=== PATIENT | female | born 1960 | race African-American/Black ===

== ENCOUNTER → 2017-05-14 | Outpatient (CLI) | payer BC ==
--- NOTE | 2017-05-14 14:05 | RAD ---
Indication: Right leg swelling. Grayscale, color-flow and duplex Doppler evaluation of the right lower extremity deep venous system was performed. FINDINGS: There is no evidence of a right lower extremity DVT. The right lower extremity venous system demonstrates normal compressibility with normal response to augmentation and Valsalva. No soft tissue fluid collections are identified. IMPRESSION: No evidence of right lower extremity DVT.
== END | disposition home or self-care (01) ==
LOC: US 13:36
PROVIDERS: ATTEND Orthopaedic Surgery Sports Medicine
DX: M79.89 Other specified soft tissue disorders (principal); R60.0 Localized edema
CPT/HCPCS: 93971

== ENCOUNTER → 2017-06-12 | Outpatient (CLI) | payer BC ==
[~2017-06-12] MED LIST: AMLO10TA2 PO; HYDR12.53 PO; METO100T2 PO; POTA10TA12 PO
--- NOTE | 2017-06-12 13:20 | EKG ---
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
[2017-06-12 13:25] LABS: BASO # 0.1 x10^3/uL (0.0-0.2); BASO % 1 % (0-3); EOS % 1 % (0-3); HEMATOCRIT 40.1 % (36.0-47.0); HEMOGLOBIN 13.4 g/dL (12.0-15.5); LYMPH # 3.4 x10^3/uL (1.0-4.8); LYMPH % 39 % (24-48); MEAN CORPUSCULAR HEMOGLOBIN 28 pg (25-35); MEAN CORPUSCULAR HGB CONC 34 g/dL (31-37); MEAN CORPUSCULAR VOLUME 84 fL (79-100); MONO % 8 % (0-9); NEUT % 52 % (31-73); PLATELET COUNT 329 x10^3/uL (140-400); RED BLOOD COUNT 4.76 x10^6/uL (3.50-5.40); RED CELL DISTRIBUTION WIDTH 13.7 % (11.5-14.5); WHITE BLOOD COUNT 8.8 x10^3/uL (4.0-11.0)
[2017-06-12 13:32] LABS: CREATININE 0.7 mg/dL (0.6-1.0); GFR 104.7; POTASSIUM 3.6 mmol/L (3.5-5.1)
== END | disposition home or self-care (01) ==
LOC: SURGPAT 12:17
PROVIDERS: ATTEND Obstetrics & Gynecology
DX: Z01.812 Encounter for preprocedural laboratory examination (principal)
CPT/HCPCS: 36415; 80048; 85027; 93005

== ENCOUNTER → 2017-06-21 | Outpatient (CLI) | payer BC ==
--- NOTE | 2017-06-21 10:43 | KCIC ---
MRI right foot without contrast dated 06/21/2017. No comparison available. CLINICAL INDICATION: Right foot pain and swelling. Pain for 2 months. TECHNIQUE: T1 and T2-weighted imaging performed in 3 planes to include the midfoot region. No contrast administered. FINDINGS: There is focal bone marrow edema involving the posterior medial aspect of the cuboid bone. Subtle hypointense lines posterior medially extending to the articular surface. No displaced component. Mild increased signal within the shaft of the third metatarsal and neck of the fourth metatarsal with surrounding soft tissue edema and periosteal edema. There is also mild increased signal within the marrow of the lateral cuneiform bone and base of second metatarsal. No additional fracture line. Minimal increased signal within the talar neck and head medially. There is diffuse edema throughout the subcutaneous tissues of the dorsal foot. There is also diffuse edema at the ankle. No ankle joint effusion. The talar dome is intact. Mild degenerative change of the tibiotalar joint and subtalar joints and joints of midfoot. Lisfranc ligament is grossly intact. Flexor and extensor tendons are grossly intact. The ankle ligaments are not well evaluated but appear grossly intact. IMPRESSION: 1. Stress fractures of the cuboid bone and fourth metacarpal neck, without significant displacement. 2. Mild edema within the second and third metatarsal and lateral cuneiform bone, reactive edema versus stress reaction. 3. Since of subcutaneous edema as described above. This is nonspecific and could be reactive. Neuropathic edema, cellulitis or vasogenic edema is also possible. Recommend clinical correlation. 4. Mild degenerative changes as described above. Electronically signed by: Florencio Morel MD (06/21/2017 10:40 AM) [facility]
== END | disposition home or self-care (01) ==
LOC: KCIC MRI 08:04
PROVIDERS: ATTEND Nurse Practitioner Gerontology
DX: M84.374A Stress fracture, right foot, initial encounter for fracture (principal); X58.XXXA Exposure to other specified factors, initial encounter; Y93.89 Activity, other specified; Y92.89 Other specified places as the place of occurrence of the external cause; Y99.8 Other external cause status; R60.0 Localized edema
CPT/HCPCS: 73718

== ENCOUNTER → 2017-06-21 | Outpatient (CLI) | payer BC ==
--- NOTE | 2017-06-21 12:22 | RAD ---
DATE: 06/21/2017 EXAM: MAMMO KIRSTA SCREENING BILATERAL HISTORY: Routine screening COMPARISON: 07/16/2016 The breast parenchyma is primarily fatty replaced. Breast parenchyma level density A. FINDINGS: 2-D and 3-D tomosynthesis imaging was performed in CC and MLO projections. There is a small cluster of microcalcifications in the upper outer right breast. These has been little if any increase since 10/08/2014. These are most likely benign. No new or enlarging breast densities are seen. Benign-appearing lymph node type densities are present in the axillary regions. IMPRESSION: There is no mammographic evidence of malignancy in either breast. BI-RADS CATEGORY: 2 BENIGN FINDING(S) RECOMMENDED FOLLOW-UP: 12M 12 MONTH FOLLOW-UP PQRS compliance statement: Patient information was entered into a reminder system with a target due date for the next mammogram. Mammography is a sensitive method for finding small breast cancers, but it does not detect them all and is not a substitute for careful clinical examination. A negative mammogram does not negate a clinically suspicious finding and should not result in delay in biopsying a clinically suspicious abnormality. "Our facility is accredited by the [employer] Mammography Program."
== END | disposition home or self-care (01) ==
LOC: KCIC MAMMO 08:03
PROVIDERS: ATTEND Family Medicine
DX: Z12.31 Encounter for screening mammogram for malignant neoplasm of breast (principal)
CPT/HCPCS: 77063; G0202; 77067

== ENCOUNTER 2017-06-27 09:07 | Observation (INO) | payer BC ==
[2017-06-27] VITALS (8 sets, daily range): BP systolic 102–116; BP diastolic 58–68
[~2017-06-27] VITALS: Ht 165.1 cm; Wt 75.3 kg
[~2017-06-27 09:07] MED LIST changes: +BUPIVAC MPF-EPI 0.5%-1:200000 30 ML VIAL. ONE; +ESTROGENS, CONJ VAGINAL CREAM 30GM TUBE. ONE; +HYDROmorphone 2 MG/ML VIAL IV PRN; +IV RINGERS,LACTATED 1000ML 1,000 ML IV SCH; +LIDOCAINE 1% 1 ML SYRINGE. ID PRN; +MORPHINE SULFATE 2 MG/ML DISP.SYRIN. IV PRN; +ONDANSETRON PF 4 MG/2 ML VIAL. IV PRN; +PROCHLORPERAZINE 10 MG/2 ML VIAL. IV PRN; +fentaNYL PF VIAL 100 MCG/2 ML VIAL IV PRN
[2017-06-27] MEDS ORDERED: LIDOCAINE 2% PF Vial for OR 5 ML VIAL. ONE (09:25)
[2017-06-27] MEDS ORDERED: PROPOFOL 20 ML IV ONE (09:25)
[2017-06-27] MEDS ORDERED: SUCCINYLCHOLINE 200 MG/10 ML VIAL. ONE (09:25)
[2017-06-27] MEDS ORDERED: fentaNYL PF VIAL 100 MCG/2 ML VIAL ONE ×3 (09:25→13:34)
[2017-06-27 12:16] LABS: BASO % 0 % (0-3); EOS % 1 % (0-3); HEMATOCRIT 39.8 % (36.0-47.0); HEMOGLOBIN 13.2 g/dL (12.0-15.5); LYMPH # 2.4 x10^3/uL (1.0-4.8); LYMPH % 30 % (24-48); MEAN CORPUSCULAR HEMOGLOBIN 28 pg (25-35); MEAN CORPUSCULAR HGB CONC 33 g/dL (31-37); MEAN CORPUSCULAR VOLUME 85 fL (79-100); MONO % 8 % (0-9); NEUT % 61 % (31-73); PLATELET COUNT 305 x10^3/uL (140-400); RED BLOOD COUNT 4.71 x10^6/uL (3.50-5.40); RED CELL DISTRIBUTION WIDTH 13.5 % (11.5-14.5); WHITE BLOOD COUNT 8.1 x10^3/uL (4.0-11.0)
[2017-06-27] MEDS ORDERED: DEXAMETHASONE SOD PHOS 20 MG/5 ML VIAL. ONE (12:21)
[2017-06-27] MEDS ORDERED: DESFLURANE 61 TO 120 MINUTES IH ONE (12:21)
[2017-06-27] MEDS ORDERED: NEOSTIGMINE 10 MG/10 ML VIAL. ONE (12:35)
[2017-06-27] MEDS ORDERED: GLYCOPYRROLATE 1 MG/5 ML VIAL. ONE (12:35)
[2017-06-27] MEDS ORDERED: ONDANSETRON PF 4 MG/2 ML VIAL. ONE (12:35)
[2017-06-27] MEDS ORDERED: FAMOTIDINE 20 MG/2 ML VIAL ONE (12:36)
[2017-06-27] MEDS: fentaNYL PF VIAL 100 MCG/2 ML VIAL IV PRN ×4 (13:07→13:50)
--- NOTE | 2017-06-27 13:11 | PDOC ---
BRIEF OPERATIVE NOTE Date: Jun 27, 2017 Pre-Op Diagnosis pelvic pain, fibroids Post-Op Diagnosis same Procedure Performed Lavh and bso Surgeon Nickolas Clinical Secretary Yaron Anesthesiologist Fidencio lezama Anesthesia Type: General Blood Loss 25cc IV Fluid see anesth Urine Output see anesthesea Findings see dictation Complications none OPerative Note [id number] HONORIO ALEXANDER MD Jun 27, 2017 13:11
[2017-06-27] MEDS ORDERED: PROCHLORPERAZINE 10 MG/2 ML VIAL. ONE (13:13)
[2017-06-27] MEDS ORDERED: oxyCODONE/APAP 5/325 1 TAB TABLET PO PRN (13:15)
[2017-06-27] MEDS ORDERED: HYDROmorphone 2 MG/ML VIAL IM PRN (13:15)
[2017-06-27] MEDS ORDERED: diphenhydrAMINE 50 MG/ML VIAL IV PRN (13:15)
[2017-06-27] MEDS ORDERED: LACTULOSE 20 GM/30 ML SOLUTION. PO PRN (13:15)
[2017-06-27] MEDS ORDERED: SIMETHICONE 80 MG TAB.CHEW PO PRN (13:15)
[2017-06-27] MEDS ORDERED: CALCIUM CARBONATE 500 MG TAB.CHEW PO PRN (13:15)
[2017-06-27] MEDS ORDERED: KETOROLAC TROMETHAMINE 30 MG/ML INJ. IV PRN (13:15)
[2017-06-27] MEDS ORDERED: ONDANSETRON PF 4 MG/2 ML VIAL. IV PRN (13:15)
[2017-06-27] MEDS ORDERED: NALOXONE 0.4 MG/ML VIAL. IV PRN (13:15)
[2017-06-27] MEDS ORDERED: HYDROmorphone 2 MG/ML VIAL IV PRN (13:15)
[2017-06-27] MEDS ORDERED: IBUPROFEN 600 MG TABLET. PO PRN (13:15)
[2017-06-27] MEDS ORDERED: BISACODYL 10 MG SUPP.RECT. PR PRN (13:15)
[2017-06-27] MEDS ORDERED: METOCLOPRAMIDE HCL 10 MG/2 ML VIAL. IV PRN (13:15)
[2017-06-27] MEDS ORDERED: ZOLPIDEM 5 MG TABLET. PO PRN (13:15)
[2017-06-27] MEDS ORDERED: diphenhydrAMINE HCL 25 MG CAPSULE PO PRN (13:15)
[2017-06-27] MEDS ORDERED: 0.9 % SODIUM CHLORIDE 10 ML DISP.SYRIN. IV PRN (13:15)
[2017-06-27] MEDS ORDERED: MAG HYDROX/ALUMINUM HYD/SIMETH 30 ML ORAL.SUSP PO PRN (13:15)
--- NOTE | 2017-06-27 13:16 | DISCH ---
DISCHARGE INSTRUCTIONS Condition on Discharge Condition on Discharge: Stable Activity After Discharge Activity Instructions for Disc: Activity as tolerated, Avoid exertion Lifting Instructions after Dis: No heavy lifting, Do not lift >10 pounds Exercise Instruction after Dis: Progress as tolerated Driving Instructions after Dis: No driving for 2 weeks Weight Bearing Status after Di: As tolerated Diet after Discharge Diet after Discharge: Regular Wound Incision Care Wound/Incision Care: Ice to area for comfort, May get incision wet Contacting the DR. after DC Call your doctor for: If your condition worsens Follow-Up Follow up with: 1 week in office HONORIO ALEXANDER MD Jun 27, 2017 13:16
[2017-06-27] MEDS: HYDROcodone/APAP 5/325MG 1 TAB TABLET PO PRN (17:47)
--- NOTE | 2017-06-28 00:05 | OP ---
DATE OF SURGERY: 06/27/2017 PREOPRATIVE DIAGNOSIS: This is a 57-year-old female who presents today for LAVH due to pelvic pain and a fibroid uterus seen on ultrasound. POSTOPERATIVE DIAGNOSIS: Pelvic pain and fibroid uterus seen on ultrasound. PROCEDURE: LAVH and BSO. SURGEON: Minnie Alexander MD [employer] CLEANING MACHINE OPERATOR: Yaron. ANESTHESIA: General. COMPLICATIONS: None. ESTIMATED BLOOD LOSS: 25 mL. URINE OUTPUT: Please see anesthesia summary. It was clear, however. FLUIDS: Please see anesthesia summary. SPECIMEN: Uterus, tubes and ovaries. COMPLICATIONS: None. DESCRIPTION OF PROCEDURE: After informed consent was obtained, the patient was taken to the operating room and given a smooth induction of anesthesia without complications. Her abdomen, perineum and vagina were prepped and draped in the usual sterile fashion. A Son catheter had been previously placed. Her legs were placed in Hao stirrups and her perineum and vagina were prepped and draped in usual sterile fashion. [place] speculum was placed in the vagina and the anterior lip of the cervix was grasped with a single tooth tenaculum. A Valtchev was placed through the cervical os and attached to the tenaculum. Speculum was then removed. We injected the cervicovaginal junction with of 0.5% Marcaine with epinephrine, 10 mL total. We injected at a 2, 4, 8 and 10 o'clock on the cervix. We then went above. A 5 mm incision was made just above the umbilicus. A bladeless trocar was placed down through this incision using direct visualization. The patient was then placed in Trendelenburg. Two lateral ports were also placed under direct visualization. The uterus was noted to be very deformed with multiple fibroids. We then proceeded to cauterize across the round ligaments bilaterally. The ligaments were incised and the bladder flap was created anteriorly. We then elevated the tube and ovary and cauterized across the infundibulopelvic ligaments bilaterally. We first visualized the ureter to make sure it was . Once this was complete and the ovaries were removed from the sidewalls, we were able to cauterize down the sides of the uterus, cauterizing the uterine artery branches. This was done towards the bladder flap. We then made sure that the bladder flap was retracted inferiorly and out of the way. We cauterized across the uterosacral ligaments. We then went below to finish the procedure. The speculum was placed in the vagina and the anterior lip of the cervix. The tenaculum was removed. The Valtchev was also removed, two Ricky thyroid clamps were placed. We created a circumferential incision around the cervix and retracted the bladder superiorly using blunt dissection with a Ray-Shabana. We then entered the posterior peritoneum using sharp dissection and tacked the posterior peritoneum to the posterior vaginal wall and saved this for later use. We then proceeded to clamp, cut and ligate the uterosacral ligaments. These were tied off with Marcy transfixion sutures and tied to the lateral vaginal sidewalls for later use. We then proceeded to cauterize what was left of the uterosacral and cardinal ligaments. The uterus was then removed from the field as it was free. We closed the peritoneum using a running pursestring suture of 2-0 Vicryl. We then closed the vagina with a running locking stitch of 2-0 Vicryl. Good hemostasis was noted. We then went above to irrigate the pelvis. The pelvis was irrigated. No bleeding was noted. The pericolic gutters were visualized. No fluid was there. We then sprayed Tisseel on the raw surfaces. Again, no bleeding was noted. The instruments and trocars were removed under direct visualization. The gas was allowed to escape. The incision sites were closed with an interrupted suture of 4-0 nylon and infiltrated with anesthetic for patient comfort. The patient tolerated the procedure well. There were no complications. MINNIE ALEXANDER MD DR: JENNIFER/vincent JOB#: [id number] / [id number]
[2017-06-28] MEDS: HYDROcodone/APAP 5/325MG 1 TAB TABLET PO PRN (02:44)
[2017-06-28 06:32] VITALS: BP 96/50
--- NOTE | 2017-06-28 08:47 | PDOC ---
SURGICAL PROGRESS NOTE Subjective Doing well. No complaints. Vital Signs Vital Signs Date Time Temp Pulse Resp B/P (MAP) Pulse Ox O2 Delivery O2 Flow Rate FiO2 06/28/17 06:32 98.0 75 18 96/50 (65) 96 Room Air 98.0 06/27/17 17:18 2.0 I&O Intake and Output 06/28/17 07:00 Intake Total 1950 ml Output Total 1400 ml Balance 550 ml Intake Oral 600 ml IV Total 1350 ml Output Urine Total 1400 ml # Voids 2 PATIENT HAS A SERRATO: No General: Alert, Oriented X3, Cooperative, No acute distress HEENT: Mucous membr. moist/pink Heart: Regular rate, Normal S1, Normal S2, No murmurs Abdomen: Normal bowel sounds, Soft, No tenderness, No hepatosplenomegaly, No masses Labs Laboratory Tests Test 06/27/17 08:25 06/27/17 18:00 White Blood Count 8.1 x10^3/uL (4.0-11.0) Red Blood Count 4.71 x10^6/uL (3.50-5.40) Hemoglobin 13.2 g/dL (12.0-15.5) Hematocrit 39.8 % (36.0-47.0) 38.1 % (36.0-47.0) Mean Corpuscular Volume 85 fL (79-100) Mean Corpuscular Hemoglobin 28 pg (25-35) Mean Corpuscular Hemoglobin Concent 33 g/dL (31-37) Red Cell Distribution Width 13.5 % (11.5-14.5) Platelet Count 305 x10^3/uL (140-400) Neutrophils (%) (Auto) 61 % (31-73) Lymphocytes (%) (Auto) 30 % (24-48) Monocytes (%) (Auto) 8 % (0-9) Eosinophils (%) (Auto) 1 % (0-3) Basophils (%) (Auto) 0 % (0-3) Neutrophils # (Auto) 4.9 x10^3uL (1.8-7.7) Lymphocytes # (Auto) 2.4 x10^3/uL (1.0-4.8) Monocytes # (Auto) 0.6 x10^3/uL (0.0-1.1) Eosinophils # (Auto) 0.1 x10^3/uL (0.0-0.7) Basophils # (Auto) 0.0 x10^3/uL (0.0-0.2) Laboratory Tests Test 06/27/17 18:00 Hematocrit 38.1 % (36.0-47.0) Assessment/Plan [id number] Plan for discharge today Problems: HONORIO ALEXANDER MD Jun 28, 2017 08:47
[2017-06-28] MEDS ORDERED: amLODIPine BESYLATE 10 MG TABLET PO SCH (09:00)
[2017-06-28] MEDS ORDERED: hydroCHLOROthiazide 25 MG TABLET PO SCH (09:00)
[2017-06-28] MEDS ORDERED: POTASSIUM CHLORIDE 10 MEQ TABLET.ER. PO SCH (09:00)
[2017-06-28] MEDS ORDERED: METOPROLOL TART IMMED RELEASE 50 MG TABLET. PO SCH (09:00)
--- NOTE | 2017-06-28 11:59 | DS ---
DATE OF DISCHARGE: 06/28/2017 PREOPERATIVE DIAGNOSES: This 57-year-old female who presented with history of pelvic pain and uterine fibroids seen on ultrasound. POSTOPERATIVE DIAGNOSES: This 57-year-old female who presented with history of pelvic pain and uterine fibroids seen on ultrasound. HOSPITAL COURSE: She underwent the planned procedure yesterday of LAVH and BSO. She tolerated the procedure well. She has no complaints this morning. She is ready to go home. Her vital signs are stable. She is afebrile. Total I's and O's last night were 1915 and 1400. She does not have a Son anymore. Her hematocrit yesterday was 39. Plan is to discharge her to home today with following instructions; 1. Diet regular. 2. Nothing in the vagina for 6 weeks. 3. No lifting and no driving for 2 weeks. She has been given instructions not to lift anything greater than 10 pounds. She is to follow up in one week in the office, otherwise can have regular diet. She is to call for any fever of 101, ____ vaginal discharge or any pain or bleeding more than she had in the hospital. HONORIO ALEXANDER MD DR: JENNIFER/vincent JOB#: [id number] / [id number]
--- NOTE | 2017-07-01 13:44 | PATHOLOGY ---
PATHOLOGY REPORT * * * * * * * * FINAL DIAGNOSIS: Uterus and attached bilateral fallopian tube and ovaries, hysterectomy with bilateral salpingo-oophorectomy: - Leiomyomas, uterine corpus, subserosal and intramural, multiple, the largest measuring 2.5 cm in greatest dimension and showing focal hyalinization and calcification. - Chronic cervicitis with focal squamous metaplasia. - Nabothian cyst, cervix. - Atrophic endometrium. - Endometrial polyp. - Adenomyosis, uterine corpus, focal. - Status post previous bilateral tubal ligation. - Involutional changes and few small serous cysts of bilateral ovaries. COMMENT: There is no evidence of malignancy. (JPM:pit; 07/01/2017) REPORT ELECTRONICALLY SIGNED BY: Casimiro Hernandez M.D. DATE/TIME: 07/01/2017 13:43 * * * * * * * * GROSS PATHOLOGY: The specimen is received in formalin labeled "Shirley Iniguez, cervix, uterus, bilateral tubes and ovaries". Received is a 7.1 x 5.3 x 3.2 cm 80g uterus with attached cervix. The uterine serosa is nice cartagena, smooth and glistening. The 1.0 cm round cervical os is surrounded by nice cartagena, smooth ectocervical mucosa. There is a large subserosal fibroid along the left lateral aspect. There is a second smaller subserosal fibroid inferior and medial to the larger. The uterus is oriented using the peritoneal reflection and the anterior paracervical margin is inked black. The uterus is opened laterally to reveal a yellow cartagena, smooth, focally cystic endocervical canal measuring 2.7 cm in length. The endometrial cavity is somewhat linear measuring 2.5 cm in length by 1.2 cm in width. The endometrium is reddish brown and somewhat granular in appearance and measures 0.3 in thickness. Serial sectioning reveals a pink cartagena myometrium measuring 0.9 cm in thickness. There are multiple subserosal and intramural fibroids ranging from 0.8 up to 2.5 cm in maximum dimensions. The largest fibroid is extensively calcified. The left adnexa weighs 3.1 g and consists of a previously ligated fimbriated fallopian tube measuring 3.5 cm in length by up to 0.6 cm in diameter attached to a 1.5 x 1.0 x 0.7 cm ovary. Sectioning through the fallopian tube reveals a pinpoint nice cartagena lumen and the fallopian tube otherwise appears grossly unremarkable. Sectioning through the ovary reveals a yellow cartagena, focally cystic appearing cut surface. The right adnexa weighs 4.1 g and consists of a fimbriated fallopian tube measuring 3.5 cm in length by up to 0.7 cm in diameter attached to a 2.3 x 1.1 x 0.9 cm ovary. Sectioning through the fallopian tube reveals a nice cartagena pinpoint lumen and the fallopian tube otherwise appears grossly unremarkable. Sectioning through the ovary reveals a yellow cartagena cut surface with a 0.9 cm cortical cyst. Shutdown Coordinator sections are submitted as follows: A1- anterior cervix A2- posterior cervix A3- anterior endomyometrium A4-5- posterior endomyometrium A6- outbound telemarketing representative sections from fibroids, following decalcification A7- outbound telemarketing representative sections from left adnexa A8- outbound telemarketing representative sections from right adnexa (JPM; 06/28/17) INITIAL CPT CODE(S): A; 59636 Professional services performed [place] [facility] [place] [address] Technical services performed by [facility] at [address] [place] [address] [address], [place] [address]. SPECIMEN(S) RECEIVED: A.Cervix, uterus, bilateral tubes and ovaries CLINICAL HISTORY: Pelvic pain, fibroids PATIENT: SHIRLEY INIGUEZ /AGE: 7 1960 (Age: 57) PATIENT #: [id number] ALT CASE #: SPECIMEN COLLECTION DATE: 06/27/2017 SPECIMEN RECEIVED DATE: 06/28/2017 [facility] [place] [address] - PHONE: [phone] * * * END OF REPORT * * *
== END 2017-06-28 10:10 | disposition home or self-care (01) ==
LOC: SURG 09:07 → 3 NORTH 13:11
PROVIDERS: ADMIT Obstetrics & Gynecology; ATTEND Obstetrics & Gynecology
DX: D25.9 Leiomyoma of uterus, unspecified (principal); N72 Inflammatory disease of cervix uteri; N87.9 Dysplasia of cervix uteri, unspecified; N88.8 Other specified noninflammatory disorders of cervix uteri; N84.0 Polyp of corpus uteri; N80.0 Endometriosis of uterus; N83.202 Unspecified ovarian cyst, left side; N83.201 Unspecified ovarian cyst, right side
CPT/HCPCS: 36415; 58552; 85014; 85027; 86850; 86870; 86900; 86901; 88307; C1769; G0378; G0379; J0330; J0690; J0780; J1100; J2405; J2704; J2710; J3010; J3490; J7030; S0028; J2001

== ENCOUNTER → 2018-10-08 | Outpatient (CLI) | payer BC ==
[~2018-10-08] MED LIST changes: -AMLO10TA2 PO; +AMLO10TA6 PO; -BUPIVAC MPF-EPI 0.5%-1:200000 30 ML VIAL. ONE; -ESTROGENS, CONJ VAGINAL CREAM 30GM TUBE. ONE; -HYDROmorphone 2 MG/ML VIAL IV PRN; -IV RINGERS,LACTATED 1000ML 1,000 ML IV SCH; -LIDOCAINE 1% 1 ML SYRINGE. ID PRN; -METO100T2 PO; +METO100T7 PO; -MORPHINE SULFATE 2 MG/ML DISP.SYRIN. IV PRN; -ONDANSETRON PF 4 MG/2 ML VIAL. IV PRN; -PROCHLORPERAZINE 10 MG/2 ML VIAL. IV PRN; -fentaNYL PF VIAL 100 MCG/2 ML VIAL IV PRN
--- NOTE | 2018-10-08 11:55 | RAD ---
MR of the left knee Indication: Medial left knee pain after hitting any on a table one month ago. Comparison: None are available. Technique: The standard multiplanar sequences are obtained. FINDINGS: Artifact: No significant image degradation. Medial meniscus:Intact. Lateral meniscus: Intact. Anterior cruciate ligament: Intact Posterior cruciate ligament: Intact Medial collateral ligament: Proximal sprain Lateral structures: * Iliotibial band: Intact. * Lateral collateral ligament: Intact. * Biceps femoris tendon: Intact * Popliteus tendon attachment: Intact Extensive mechanism: * Patellar tendon: Intact. Hypertrophy and fragmentation of the tibial tubercle, appears chronic, may indicate old Corea-Schlatter's disease. No acute edema here however. * Quadriceps tendon: Intact * Retinacular structures: Intact Fluid: Small joint effusion. Small Gorman's cyst. Intra-articular bodies: None visualized Joint compartments * patellofemoral joint:Intact * medial compartment: Intact articular cartilage. Acute subchondral marrow edema at the medial femoral condyle, questionable thin incomplete hypointense subchondral band suggesting fracture. No displacement. * lateral compartment: Very mild subchondral marrow edema at the lateral femoral condyle, likely an extension from the medial femoral condylar process. Bones: No aggressive bone destruction. Soft tissue: Mild generalized edema Impression: 1. Acute subchondral marrow edema at the medial femoral condyle. This could represent posttraumatic fracture/contusion in correlation with the history. However, nondisplaced stress fracture is also possible. Osteonecrosis can have a similar appearance in its early stages. 2. Proximal medial collateral ligament sprain. Electronically signed by: Florencio Moore MD (10/08/2018 11:52 AM) [facility]
== END | disposition home or self-care (01) ==
LOC: MRI 08:31
PROVIDERS: ATTEND Family Medicine Sports Medicine
DX: S83.412A Sprain of medial collateral ligament of left knee, initial encounter (principal); M71.22 Synovial cyst of popliteal space [Baker], left knee; M25.462 Effusion, left knee; R60.0 Localized edema; X58.XXXA Exposure to other specified factors, initial encounter; Y93.89 Activity, other specified; Y92.89 Other specified places as the place of occurrence of the external cause; Y99.8 Other external cause status
CPT/HCPCS: 73721

== ENCOUNTER → 2019-03-10 | Outpatient (CLI) | payer BC ==
[~2019-03-10] MED LIST changes: -AMLO10TA6 PO; +AMLO10TA8 PO; -HYDR12.53 PO; +HYDR12.575 PO
--- NOTE | 2019-03-10 12:33 | RAD ---
Right upper quadrant abdominal ultrasound without comparison for elevated LFTs. TECHNIQUE AND FINDINGS: Real-time grayscale and color Doppler evaluation of the related to the right upper quadrant are performed. The liver is enlarged, and notable for diffuse fatty infiltration with no focal parenchymal abnormalities. No intra or extrahepatic biliary ductal dilatation. Common bile duct measures 5 mm. The gallbladder is fluid distended and notable for dependent shadowing stones and sludge. No pericholecystic fluid or gallbladder wall thickening. No sonographic Moreno sign. No focal pancreatic abnormalities are identified within the visualized portions of the pancreas. The IVC is patent. The right kidney measures 12.1 x 5.9 x 5.3 cm and is notable for a 5.5 cm simple exophytic renal cyst at the upper pole. IMPRESSION: 1. Hepatomegaly and hepatic steatosis. 2. Cholelithiasis without sonographic evidence of acute cholecystitis. 3. Simple right renal cyst Electronically signed by: Arjun Swanson MD (03/10/2019 12:31 PM) [id number]
== END | disposition home or self-care (01) ==
LOC: US 06:47
PROVIDERS: ATTEND Family Medicine
DX: K80.20 Calculus of gallbladder without cholecystitis without obstruction (principal); K76.0 Fatty (change of) liver, not elsewhere classified; N28.1 Cyst of kidney, acquired
CPT/HCPCS: 76705